=== PATIENT | male | born 1995 | race Asian ===

== ENCOUNTER 2017-04-06 16:40 | Emergency (ER) | payer OTHER ==
[~2017-04-06] VITALS: Ht 175.3 cm; Wt 90.7 kg
--- NOTE | 2017-04-06 16:50 | ER Report ---
History and Physical Time Seen By MD: 16:50 Hx. of Stated Complaint: PT REPORTS L PINKY/HAND PAIN FROM FALL WHILE SKIING HPI/ROS CHIEF COMPLAINT: Left fifth finger pain and swelling HISTORY OF PRESENT ILLNESS: 21-year-old male patient presents to emergency room with complaint of left fifth finger pain and swelling. Patient states that he was skiing today and fell. He states when he fell he hurt his left pinky and hand. He states he has pain. States that he has pain right around the MCP joint. He denies having any numbness or tingling to the finger. He states he is not taking any medication for this. Patient denies any head injury, nausea, vomiting. Allergies: Coded Allergies: No Known Drug Allergies (Unverified , 04/06/17) Home Meds Active Scripts Hydrocodone Bit/Acetaminophen (HYDROCODON-ACETAMINOPHEN 5-325) 1 Each Tablet, 1 EACH PO Q4-6H Y for PAIN, #12 TAB Prov:ZAKI DARLING JAVA DEVELOPER ARCHITECT 04/06/17 Past Medical/Surgical History Patient denies any pertinent medical history. Patient has a surgical history of nasal surgery. Reviewed Nurses Notes: Yes Constitutional Vital Sign - Last 24 Hours 04/06/17 04/06/17 16:47 18:00 Temp 98.0 Pulse 96 92 Resp 16 16 B/P (MAP) 140/95 126/78 (94) Pulse Ox 95 93 O2 Delivery Room Air Room Air Physical Exam General appearance: Alert no distress. Respiratory: Chest is non tender, lungs are clear to auscultation. Cardiac: Regular rate and rhythm. Musculoskeletal: Patient has swelling, tenderness to the left fifth finger. Seems to be located at the MCP joint. Patient is able to move the finger up and down but is not able to abduct or adduct the finger. Patient has no tingling to the finger. Capillary refill is brisk. DIFFERENTIAL DIAGNOSIS: After history and physical exam differential diagnosis was considered for fracture, contusion, dislocation. Medical Decision Making EKG/Imaging Imaging INDICATION: fall with left 5 finger pain. DATE: 04/06/2017 5:22 PM. TECHNIQUE: HAND COMPLETE LEFT COMPARISON: None FINDINGS: A transverse fracture at the base of the fifth proximal phalanx is mildly displaced, and the overlying soft tissues are swollen. IMPRESSION: Displaced fracture at the base of the fifth proximal phalanx. Report Dictated By: Lula Chirinos MD at 04/06/2017 5:22 PM Report E-Signed By: Lula Chirinos MD at 04/06/2017 5:23 PM INDICATION: post reduction. DATE: 04/06/2017 5:54 PM. TECHNIQUE: HAND COMPLETE LEFT COMPARISON: Prereduction radiograph FINDINGS: Splint material obscures osseous detail. The fractured fifth proximal phalanx remains mildly displaced. IMPRESSION: Persistent mild displacement of the fifth proximal phalanx. Report Dictated By: Lula Chirinos MD at 04/06/2017 5:54 PM Report E-Signed By: Lula Chirinos MD at 04/06/2017 5:55 PM ED Course/Re-evaluation ED Course Patient was admitted to exam room, history and physical were obtained. Differential diagnoses were considered. On examination patient had deformity of the left fifth finger at the MCP joint. X-rays done of the left hand. He does have a fractured and displaced fifth finger. Discussed findings with patient. He did have his finger digitally blocked using 1% lidocaine with 0.5% Marcaine. He received total 5 cc. The patient stated that he was adequately anesthetized I attempted to reduce the finger. It did look better on examination, he was placed in a ulnar splint. A repeat x-ray was done which showed a persistent mild displacement of a left fifth finger. We will go ahead and have the patient follow-up with Dr. rodriges and had [facility]. Patient was given the information to follow-up. He is to call on Saturday. Patient be given a limited supply of pain medication. He was instructed to leave the splint on until he is seen by orthopedics. Patient verbalized understanding and agreement with plan. Procedure: Splint placement. A ulnar gutter splint was applied. After application of the splint I returned and re-examined the patient. The splint was adequately immobilizing the joint and distal to the splint the patient's circulation and sensation was intact. Decision to Disposition Date: Apr 06, 2017 Decision to Disposition Time: 17:55 Depart Departure Latest Vital Signs Vital Signs Date Time Temp Pulse Resp B/P (MAP) Pulse Ox O2 Delivery O2 Flow Rate FiO2 04/06/17 18:00 92 16 126/78 (94) 93 Room Air 04/06/17 16:47 98.0 Impression: Primary Impression: Finger fracture, left Condition: Improved Disposition: HOME OR SELF-CARE Referrals: INGRID BAIG MD New Scripts Hydrocodone Bit/Acetaminophen (HYDROCODON-ACETAMINOPHEN 5-325) 1 Each Tablet 1 EACH PO Q4-6H Y for PAIN, #12 TAB Prov: ZAKI DARLING 04/06/17 Patient Instructions: Finger Fracture (ED) Additional Instructions: Limit activity by pain. Ice the finger through the splint; 2-3 times a day for 20-30 minutes. If the splint is feeling too tight you may loosen the john wrap and rewrap it. Follow up with [facility], call Saturday to make an appointment. Keep the splint dry, wrap it with a bag and tape to keep the water out. Return to the ER with uncontrollable pain or numbness to the hand. You may take Ibuprofen as needed for pain in addition to the pain medication. Don't take any additional Tylenol while on the pain medication. Problem Qualifiers Primary Impression: Finger fracture, left Encounter type: initial encounter Finger: little finger Fracture type: closed Phalanx: proximal Fracture alignment: displaced Qualified Codes: S62.617A - Displaced fracture of proximal phalanx of left little finger, initial encounter for closed fracture ZAKI DARLING Apr 06, 2017 16:50
--- NOTE | 2017-04-06 17:27 | RADIOLOGY IMAGING REPORT ---
FACILITY: [facility] PATIENT NAME: Eliel Huerta : 1995 MR: [id number] V: [id number] EXAM DATE: ORDERING PHYSICIAN: ZAKI DARLING TECHNOLOGIST: Location: [facility] - [place] Patient: Eliel Huerta : 1995 Visit/Account:[id number] Date of Sevice: 04/06/2017 INDICATION: fall with left 5 finger pain. DATE: 04/06/2017 5:22 PM. TECHNIQUE: HAND COMPLETE LEFT COMPARISON: None FINDINGS: A transverse fracture at the base of the fifth proximal phalanx is mildly displaced, and th e overlying soft tissues are swollen. IMPRESSION: Displaced fracture at the base of the fifth proximal phalanx. Report Dictated By: Lula Chirinos MD at 04/06/2017 5:22 PM Report E-Signed By: Lula Chirinos MD at 04/06/2017 5:23 PM WSN:[id number]
[2017-04-06] MEDS ORDERED: HYDR-385 PO (17:54)
--- NOTE | 2017-04-06 17:59 | RADIOLOGY IMAGING REPORT ---
FACILITY: [facility] - [place] PATIENT NAME: Eliel Huerta : 1995 MR: [id number] V: [id number] EXAM DATE: ORDERING PHYSICIAN: ZAKI DARLING TECHNOLOGIST: Location: [facility] - [place] Patient: Eliel Huerta : 1995 Visit/Account:[id number] Date of Sevice: 04/06/2017 INDICATION: post reduction. DATE: 04/06/2017 5:54 PM. TECHNIQUE: HAND COMPLETE LEFT COMPARISON: Prereduction radiograph FINDINGS: Splint material obscures osseous detail. The fractured fifth proximal phalanx remains mildl y displaced. IMPRESSION: Persistent mild displacement of the fifth proximal phalanx. Report Dictated By: Lula Chirinos MD at 04/06/2017 5:54 PM Report E-Signed By: Lula Chirinos MD at 04/06/2017 5:55 PM WSN:[id number]
[2017-04-06 18:00] VITALS: BP 126/78
== END 2017-04-06 18:00 | disposition home or self-care (01) ==
LOC: ER 16:47
DX: S62.617A Displaced fracture of proximal phalanx of left little finger, initial encounter for closed fracture (principal); W00.9XXA Unspecified fall due to ice and snow, initial encounter; Y93.23 Activity, snow (alpine) (downhill) skiing, snowboarding, sledding, tobogganing and snow tubing
CPT/HCPCS: 99283